=== PATIENT | female | born 1975 | race Hispanic/Latino ===

== ENCOUNTER 2017-05-09 16:00 | Inpatient (IN) | payer OTHER ==
[~2017-05-09] VITALS: Ht 152.4 cm; Wt 76.1 kg
[2017-05-09 16:09] VITALS: BP 146/78; PULSE 116; RESP 21; O2SAT 96
[2017-05-09] MEDS ORDERED: 0.9% Sodium Chloride 1,000 ML IV ONE (16:31)
[2017-05-09] MEDS ORDERED: Ondansetron 2 mg/mL 2 mL Inj IVPUSH PRN ×3 (16:35→22:05)
[2017-05-09] MEDS: HYDROmorphone 0.5 mg/0.5 mL iSecure Syringe IVPUSH PRN ×3 (16:42→21:07)
[2017-05-09 16:43] LABS: BASOPHILS % (AUTO) 0.2 % (0-3); MONOCYTES % (AUTO) 10.3 % (4-12); Mean Corpuscular Hemoglobin 28.2 pg (27.0-35.0); Mean Corpuscular Volume 85.6 fL (81-100); NEUTROPHILS % (AUTO) 69.9 % (40-74); Platelet Count 297 bil/L (150-400)
[2017-05-09 16:51] LABS: APPEARANCE,URINE CLEAR (CLEAR,HAZY); COLOR,URINE YELLOW (YELLOW); OCCULT BLOOD,URINE NEGATIVE (NEGATIVE); UROBILINOGEN,URINE NORMAL (NORMAL)
[2017-05-09 16:52] LABS: Magnesium 1.8 mg/dL (1.6-2.6)
--- NOTE | 2017-05-09 17:46 | ED.REPORT ---
HPI-Abd Pain F 40 and Over Date of Service May 09, 2017 ED Provider: Huseyin López MD The patient is a 42 year old female w/ a hx of HTN and DM II who presents to the ED with constant, sharp, 10/10 RLQ abdominal pain onset yesterday afternoon and increased in severity since 1400 today. The pain is worse when breathing and walking. At 1400 today, she couldn't walk or bend over so she drove to the ED. She denies vomiting, nausea, any urinary symptoms or fever. She has been able to eat and drink normally, she ate a normal breakfast at 1130 without increased pain. She has never had symptoms like this before. Her PCP is at [facility]. Nursing Notes Stated Complaint: RIGHT SIDE PAIN Chief Complaint: Female Abdominal Pain Nursing Notes Reviewed: Yes Allergies: Coded Allergies: No Known Allergies (Unverified , 05/09/17) Scheduled Aspirin (Aspirin) 81 Mg Tablet 81 MG PO DAILY Glipizide (Glipizide) 10 Mg Tablet 10 MG PO DAILY Lisinopril (Lisinopril) 5 Mg Tablet 5 MG PO DAILY Lovastatin (Lovastatin) 10 Mg Tablet 10 MG PO HS Metformin (Glucophage) 1,000 Mg Tablet 1,000 MG PO BID General Time Seen by MD: 16:13 Chief Complaint Abdominal pain Hx Obtained From: Patient Arrived By: Walk-in Sudden in Onset?: Yes Onset Occurred: Yesterday Symptom Duration: Since onset Location: : RLQ Quality: Painful, Sharp Radiation: : Does not radiate Severity: Current: Pain level 10 out of 10 Exacerbated by: Deep breath, Walking Recent Healthcare: No recent doctor visit, No recent hospitalization Similar Sx Previous: No Past Medical History Past Medical History Reports: Diabetes mellitus, Hyperlipidemia, Hypertension Past Surgical History Reports: (2x) Smoking History Unknown if Ever Smoker Social History Other Social History: Local resident Ambulatory Status Independent Review of Systems Constitutional: Denies: Fever GI: Reports: Abdominal pain, Denies: Nausea, Vomiting Female: Denies: Dysuria, Hematuria, Incontinence, Urinary frequency, Urination decreased Complete sys rev & neg: except as marked. Physical Exam Vital Signs Vital Signs (First) Date Time Temp Pulse Resp B/P Pulse Ox O2 Delivery O2 Flow Rate FiO2 05/09/17 16:09 36.6 116 21 146/78 96 Room Air Initial VS: Reviewed General/Constitutional: Awake, Alert, Cooperative Respiratory / Chest: Atraumatic, Breath sounds NL, Breath sounds = bilat, No respiratory distress Cardiovascular: Heart rate NL, Regular rhythm, Heart sounds NL, No gallop, No murmurs, No rubs Abdomen: BS normoactive Tenderness/Guarding/Rebound: Positive: Tender RUQ... Back: Atraumatic, Inspection NL, Full range of motion Head / Eyes: Atraumatic, Normocephalic Skin: No rash, Warm, Dry Neurologic: Oriented X3, Speech NL, No motor deficits Interpretation & Diagnostics Interpretation & Diagnostics: ABDOMINAL US IMPRESSION: 1. Cholelithiasis with gallstones in the gallbladder neck. There is equivocal gallbladder wall thickening. No pericholecystic fluid collection or sonographic Mccall sign. Recommend clinical correlation for early acute cholecystitis. 2. Diffusely increased hepatic echotexture. This finding is most likely secondary to hepatic fatty infiltration although other hepatocellular disease may have a similar appearance. Recommend clinical correlation. Dictated by: Lois David M.D. on 05/09/2017 at 17:57 Approved by: Lois David M.D. on 05/09/2017 at 18:01 Lab Results Interpretation Result Diagram: 05/09/17 1615 05/09/17 1615 Test 05/09/17 16:15 05/09/17 16:40 White Blood Count 12.2th/mm3 (3.8-10.1) Red Blood Count 4.39mil/mm3 (3.90-5.20) Hemoglobin 12.4g/dL (12.0-15.6) Hematocrit 37.6% (35.0-46.0) Mean Corpuscular Volume 85.6fL (81-100) Mean Corpuscular Hemoglobin 28.2pg (27.0-35.0) Mean Corpuscular Hemoglobin Concent 33.0% (32.0-37.0) Red Cell Distribution Width 13.2% (12.3-15.4) Platelet Count 297bil/L (150-400) Neutrophils (%) (Auto) 69.9% (40-74) Lymphocytes (%) (Auto) 18.4% (14-46) Monocytes (%) (Auto) 10.3% (4-12) Eosinophils (%) (Auto) 1.0% (0-5) Basophils (%) (Auto) 0.2% (0-3) Hold Purple Top Tube Received (Received) Hold Blue Top Tube Received (Received) Sodium Level 134mEq/L (134-144) Potassium Level 3.7mEq/L (3.5-5.2) Chloride Level 99mEq/L (97-108) Carbon Dioxide Level 22mmol/L (18-29) Blood Urea Nitrogen 8mg/dL (6-24) Creatinine 0.30mg/dL (0.57-1.00) Estimat Glomerular Filtration Rate 351mL/min (>59) Glucose Level 302mg/dL (60-99) Calcium Level 8.8mg/dL (8.5-10.1) Magnesium Level 1.8mg/dL (1.6-2.6) Total Bilirubin 0.3mg/dL (0.0-1.2) Aspartate Amino Transf (AST/SGOT) 25U/L (0-50) Alanine Aminotransferase (ALT/SGPT) 33U/L (0-32) Alkaline Phosphatase 58U/L (25-150) Total Protein 7.6g/dL (6.4-8.4) Albumin 3.8g/dL (3.4-5.0) Lipase 58U/L (13-60) Hold [place] Top Tube Received (Received) Hold Gonzalez Top Tube Received (Received) Urine Color Yellow (YELLOW) Urine Appearance Clear (CLEAR,HAZY) Urine pH 7.0 (5.0-8.0) Urine Specific [place] 1.010 (1.003-1.035) Urine Protein Negativemg/dL (NEG,TRACE) Urine Glucose (UA) >1000mg/dL (NEGATIVE) Urine Ketones Tracemg/dL (NEGATIVE) Urine Occult Blood Negative (NEGATIVE) Urine Nitrite Negative (NEGATIVE) Urine Bilirubin Negative (NEGATIVE) Urine Urobilinogen Normalmg/dL (NORMAL) Urine Leukocyte Esterase Negative (NEGATIVE) Urine RBC 0-2/hpf (0-2) Urine WBC 0-5/hpf (0-5) Urine Epithelial Cells Many/hpf (NONE-MOD) Urine Crystals None seen (NONE SEEN) Urine Bacteria Many/hpf (NONE-FEW) Urine Hyaline Casts None/lpf (NONE) Urine Granular Casts None seen (NONE SEEN) Urine Waxy Casts None seen (NONE SEEN) Urine Red Blood Cell Casts None seen (NONE SEEN) Urine White Blood Cell Casts None seen (NONE SEEN) Urine Mucus None seen (None Seen) Urine Trichomonas None seen (NONE SEEN) Urine Yeast None (NONE SEEN) Urinalysis Comment None Urine Culture Reflexed Indicated Lab Results Interpretation: up preg negaitve, UA contaminant Re-Eval/Medical Decision Med Decision/Clinical Course 42-year-old female with an impacted gallstone. She is a type II diabetic presently her sugar is uncontrolled. Patient is vague about other home medications. She will be admitted to the hospitalist service with surgery consulting. Given a liter of saline, Dilaudid and Zofran in the emergency department is feeling better. Re-Evaluation/Progress #1: Time of Eval: 18:17 Re-Evaluation/Progress Note: Pt rechecked. Medication has helped slightly but she is still in pain. Informed pt of need for admission. Plan to consult with surgeon. Pt understands and agrees with plan. All question addressed. Re-Evaluation/Progress #2: Time of Eval: 18:37 Re-Evaluation/Progress Note: Dr. Olivas visits the pt in the ED. Consultation #1: Referral / Consult Name: Juana Olivas MD Consulted With: Surgeon Call Returned at: 18:26 Stem Shaper: Will see patient, Agrees with eval, Agrees with plan Note: Case discussed. Dr. Olivas will come down to see the patient. Consultation #2: Referral / Consult Name: Abraham Bennett MD Consulted With: Hospitalist Note: Will admit to hospitalist for control of glucose prior to OR hopefully tomorrow. Counseled Regarding: Diagnosis, Lab results, Need for admission Discharge & Departure Primary Impression: Gallstone (impacted) Disposition: ADMITTED TO HOSPITAL Discharge Condition All VS Reviewed: Yes Condition: Stable Patient Instructions: Acute Abdominal Pain (ED) Referrals: [facility] [place] Attestation Portion of this note were transcribed by Jacinta Camarillo. I, Dr. López, personally performed the history, physical exam, and medical decision-making: I reviewed and confirmed the accuracy for the information in the transcribed note. Signed by: tone Segura, 05/09/17 1800 copies to: [facility] Huseyin López MD May 09, 2017 17:46 Jacinta Camarillo May 09, 2017 17:52
--- NOTE | 2017-05-09 18:03 | DRSVH ---
PROCEDURE: US ABDOMEN ([id number]) INDICATIONS: Right upper quadrant abdominal pain. TECHNIQUE: Real-time scanning was performed of the abdominal and retroperitoneal organs, with image documentatio n. COMPARISON: None. FINDINGS: Liver: Liver is normal in size and diffusely increased hepatic echotexture. Gallbladder: There are gallstone in the gallbladder neck. The gallbladder wall measures 3.1 mm in thi ckness. No pericholecystic fluid or sonographic Mccall's sign. Biliary ducts: Intrahepatic bile ducts are non-dilated. Extrahepatic bile duct caliber measures 6.6 mm. Normal is 6-7 mm or less in diameter, or 10 mm or less post-cholecystectomy. Pancreas: Visualized portions of the pancreas are sonographically normal. Spleen: Spleen is normal in size and homogeneous in echotexture. Kidneys: Kidneys are normal in size and echotexture. Right kidney measures 11.7 cm long; left kidne y measures 13.2 cm long. No hydronephrosis or nephrolithiasis. No solid masses. Aorta: Visualized aorta is normal in caliber at less than 3 cm. Iliacs: Proximal common iliac arteries are normal in caliber at less than 2.5 cm. IVC: Intrahepatic inferior vena cava is patent. Miscellaneous: No free abdominal fluid. IMPRESSION: 1. Cholelithiasis with gallstones in the gallbladder neck. There is equivocal gallbladder wall thicke maxine. No pericholecystic fluid collection or sonographic Mccall sign. Recommend clinical correlation for early acute cholecystitis. 2. Diffusely increased hepatic echotexture. This finding is most likely secondary to hepatic fatty i nfiltration although other hepatocellular disease may have a similar appearance. Recommend clinical c orrelation. Dictated by: Lois David M.D. on 05/09/2017 at 17:57 Approved by: Lois David M.D. on 05/09/2017 at 18:01
[2017-05-09 18:29] VITALS: BP 121/78; PULSE 105; RESP 20; O2SAT 96
[2017-05-09] MEDS ORDERED: LOVA10TA PO (19:22)
[2017-05-09] MEDS ORDERED: METF1000 PO (19:22)
[2017-05-09] MEDS ORDERED: GLIP10TA10 PO (19:22)
[2017-05-09] MEDS ORDERED: LISI-571 PO (19:22)
[2017-05-09] MEDS ORDERED: ASPI-973 PO (19:22)
[2017-05-09 19:52] VITALS: BP 121/78; PULSE 105; RESP 20; O2SAT 96
[2017-05-09] MEDS ORDERED: 0.9% Sodium Chloride 1,000 ML IV SCH (19:56)
[2017-05-09] MEDS ORDERED: Alum-Mag Hydrox-Simeth 30 mL Suspension PO PRN ×2 (20:00→22:05)
[2017-05-09 20:05] VITALS: BP 117/70; PULSE 100; RESP 24; O2SAT 99
[2017-05-09] MEDS ORDERED: Piperacillin-Tazo 3.375 Gm Inj 3.375 GM in Dextrose 5% Minibag Plus 50 ML IV ONE (20:15)
--- NOTE | 2017-05-09 20:27 | CONS ---
[address] [address] CONSULTATION REPORT PATIENT: ERIC WINTERS : 1975 MR#: [id number] ADMIT: 05/09/2017 JOB ID: [id number] DATE OF SERVICE: 05/09/2017 CHIEF COMPLAINT: Abdominal pain. This consultation is requested by Dr. Huseyin López of the Emergency Department. HISTORY OF PRESENT ILLNESS: This is a 42-year-old woman who experienced abdominal pain in the right upper quadrant beginning yesterday. It worsened until 2 p.m. today, at which point she felt she could not walk or bend over. She then presented to the emergency department. She denies vomiting, nausea, and fever. She does not have a history of postprandial abdominal pain. She is a diabetic and her blood sugars were in the 300s. An abdominal ultrasound was performed revealing cholelithiasis with gallstones in the gallbladder neck, a gallbladder wall thickness of 3.1 mm, and no pericholecystic fluid or sonographic Mccall's sign. Intrahepatic bile ducts were nondilated. Extrahepatic bile duct caliber 6.6 mm. Comprehensive metabolic panel was normal, with the exception of glucose of 302 and ALT of 33. PAST MEDICAL HISTORY: Hypertension, type 2 diabetes, hyperlipidemia. History of cardiac catheterization, which was essentially normal, in 2009. PAST SURGICAL HISTORY: C-sections. MEDICATIONS: She is currently taking aspirin. Her med list as an outpatient under the name Christel Rg, also includes metformin, lisinopril, and lovastatin. She reports that she has forgotten to take her other medications. ALLERGIES: No known drug allergies. SOCIAL HISTORY: She does not smoke or drink alcohol. She lives with her son. She works at [employer]. Her daughter and grandbaby are here today. FAMILY HISTORY: Her daughter had a cholecystectomy. REVIEW OF SYSTEMS: Eleven-point review of systems is positive for abdominal pain and is otherwise negative. PHYSICAL EXAMINATION: Temperature 36.6, heart rate 105, respiratory rate of 20, with blood pressure 121/78, saturation 96% on room air. General: Awake and alert, no acute distress. Head: Normocephalic. Neck: Supple. Cardiac: Regular rate and rhythm. No murmurs, rubs, or gallops. Respiratory: Clear to auscultation bilaterally. Abdomen: Soft, tender in the right upper quadrant, nontender in the remaining quadrants. Extremities: No edema. Psychiatric: Normal cognition and judgment. Neurologic: No gross deficits. LABORATORY: White blood cell count is 12.2, hematocrit 37.6, platelets 297. Comprehensive metabolic panel is within normal limits, with the exception of glucose of 302 and ALT of 33. IMAGING: Abdominal ultrasound reveals cholelithiasis with equivocal gallbladder wall thickening as noted above in the HPI. ASSESSMENT: A 42-year-old woman with cholecystitis. I recommend laparoscopic cholecystectomy. She also has a blood sugar in the 300s and has forgotten to take her outpatient medications for hypertension and diabetes. She will need a good inpatient and outpatient management plan for her diabetes now and at discharge. I have scheduled laparoscopic cholecystectomy for the morning. She should remain on antibiotics until that time. She may be n.p.o. at midnight. 45 minutes was spent on this patient's care today, greater than 50% in counseling and/or coordination of care. TEODORO
[2017-05-09 20:41] VITALS: BP 107/70; PULSE 96; RESP 16; O2SAT 97
--- NOTE | 2017-05-09 21:37 | NUR ---
ADMIT: Pt. arrived to [facility] from the ED via stretcher, awake, alert and oriented x3. Reports pain on RUQ rated at 10/10. Started IV NS at 100 ml/hr upon arrival to [facility], also gave 0.5 mg of IV Dilaudid for pain control rated at 10/10. Now she states it hurts mainly when she moves otherwise she feels ok. First dose of IV Zosyn started at 100 ml/hr. Denies n/v. Dr. Herrera came in to see pt. tonlani. She is resting in bed feeling more comfortable at this time. NPO for possible OR tomorrow. On going care.
[2017-05-09] MEDS: 0.9% Sodium Chloride 1,000 ML IV SCH (22:01)
[2017-05-09] MEDS ORDERED: Polyethylene Glycol (PEG) 17 Gm Powder PO PRN (22:05)
[2017-05-09] MEDS ORDERED: Glucose 40% Oral Gel 15 Gm Tube PO PRN (22:05)
--- NOTE | 2017-05-09 23:57 | PCM.HPMED ---
Subjective Date of Service May 09, 2017 Primary Provider: Admitting Physician: Abraham Bennett MD Primary Care Physician: Nopcp Attending Physician: Abraham Bennett MD Chief Complaint: RUQ abd pain History of Present Illness: Patient is a 42 year old female w/ a hx of HTN and DM II who presented with constant, sharp, severe RUQ abdominal pain onset yesterday afternoon and increased in severity to 10/10 since 1400 today. The pain is worse when breathing and walking. At 1400 today, she couldn't walk or bend over so she drove to the ED. She denies vomiting, nausea, diarrhea, dysuria, fevers, chills. She states she has been able to eat and drink normally, and she was able to eat a normal breakfast at 11:30 without increased pain. She has never had symptoms like this before. In the ED, HR was 116, improved to 96 with pain control. BP was 146/78, improved to 107/70. WBC was 12.2. CMP was normal, with the exception of glucose of 302 and ALT of 33. An abdominal ultrasound was performed revealing cholelithiasis with gallstones in the gallbladder neck, a gallbladder wall thickness of 3.1 mm, and no pericholecystic fluid or sonographic Mccall's sign. Intrahepatic bile ducts were nondilated. Her PCP is at [facility]. Review of Systems: Comprehensive review of systems conducted and was negative except for the pertinent positives listed above. Allergies Coded Allergies: No Known Allergies (Unverified , 05/09/17) Home Medications Aspirin 81 mg daily Glipizide 10 mg daily Lisinopril 5 mg daily Lovastatin 10 mg qhs Metformin 1000 mg BID PMH Hypertension Hyperlipidemia Type 2 diabetes Surgical History History of cardiac catheterization, which was essentially normal, in 2009. C-sections x2 Family History Mother with type 2 diabetes Sister with heart murmur No FHx of NC or stroke Social History Hx Alcohol Use: No Hx Substance Use: No Smoking Status: Never Smoker Exam Vital Signs Vital Sign - Last Date Time Temp Pulse Resp B/P Pulse Ox O2 Delivery O2 Flow Rate FiO2 05/09/17 20:41 36.6 96 16 107/70 97 Room Air Exam General: Alert, Oriented X3, Cooperative, No acute distress Head: Normocephalic, atraumatic. External ears normal. Eyes: PERRLA, EOMI. Anicteric sclerae. Mouth: Mouth normal, Mucous membranes moist/pink Neck: Neck supple with full range of motion. Chest& Lungs: Clear to auscultation bilaterally with no crackles, wheezes, or rhonchi. Cardiovascular: Regular rate/rhythm, Normal S1, Normal S2, No murmurs/rubs/ gallops Abdomen: Tenderness to palpation of RUQ, Non-distended, No masses, Normoactive bowel tones, Soft Musculoskeletal: Normal range of motion Extremities: No cyanosis/clubbing/edema bilaterally Neurological: Grossly neurologically intact. Normal speech Lab and Diagnostics Result Diagram: 05/09/17 1615 05/09/17 1615 Assessment & Plan Patient is a 42 year old female w/ a hx of HTN and DM II who presented with constant, sharp, severe RUQ abdominal pain onset yesterday afternoon Acute cholecystitis. - Pt presents with RUQ pain, abdominal ultrasound was performed revealing cholelithiasis with gallstones in the gallbladder neck, a gallbladder wall thickness of 3.[address] Olivas of Surgery was consulted, pt to have cholecystectomy tomorrow. - NPO after midnight - Dr. Olivas of Surgery consulted. We appreciate her expertise. - Ibuprofen PRN pain Type 2 diabetes, uncontrolled - Glucose 302 on admission. Pt reports compliance with home glipizide and metformin. Pt may require insulin on discharge depending on BG control and A1c. - A1c ordered - Hold glipizide and metformin as pt is NPO for surgery. Restart meds after surgery and pt begins eating. - Continue regular BG checks - Lantus 7 U qhs. - Humalog medium dose correctional scale. No nutritional insulin while pt is NPO. Mildly elevated LFTs - ALT 33. Likely secondary to cholecystitis. - Monitor CMP Hypertension - Well controlled on lisinopril - Continue home lisinopril. Hyperlipidemia - Continue home lovastatin - Bowel regimen as needed - Antiemetic as needed Patient is admitted under observation status with expected length of stay less than 2 midnights due to severity of presenting symptoms, risk of adverse event, and complexity of treatment plan. Karri Herrera 28, 2017 23:57
[2017-05-10] VITALS (13 sets, daily range): BP systolic 102–138; BP diastolic 57–74; PULSE 66–91; RESP 14–18; O2SAT 92–98
[2017-05-10] MEDS ORDERED: Piperacillin-Tazo 3.375 Gm Inj 3.375 GM in Dextrose 5% Minibag Plus 50 ML IV SCH (00:30)
[2017-05-10] MEDS: Insulin GLARgine 100 Unit/mL Syringe SUBQ SCH ×2 (00:32→21:17)
[2017-05-10] MEDS: Piperacillin-Tazo 3.375 Gm Inj 3.375 GM in Dextrose 5% Minibag Plus 50 ML IV SCH ×3 (04:55→21:05)
[2017-05-10 06:18] LABS: BASOPHILS % (AUTO) 0.2 % (0-3); EOSINOPHILS % (AUTO) 1.4 % (0-5); MONOCYTES % (AUTO) 9.1 % (4-12); Mean Corpuscular Hemoglobin 28.6 pg (27.0-35.0); Mean Corpuscular Volume 87.2 fL (81-100); NEUTROPHILS % (AUTO) 64.1 % (40-74); Platelet Count 255 bil/L (150-400)
[2017-05-10] MEDS ORDERED: Lactated Ringer's 500 ML IV PRN (07:32)
[2017-05-10] MEDS ORDERED: Lactated Ringer's 1,000 ML IV SCH (07:32)
[2017-05-10] MEDS ORDERED: Labetalol 5 mg/mL 4 mL Inj IV PRN (07:35)
[2017-05-10] MEDS ORDERED: MetoCLOpramide 5 mg/mL 2 mL Inj IVPUSH PRN (07:35)
[2017-05-10] MEDS ORDERED: Dexamethasone 4 mg/mL Inj IVPUSH PRN (07:35)
[2017-05-10] MEDS ORDERED: Phenylephrine 10,000 mCg/mL Inj IVPUSH PRN (07:35)
[2017-05-10] MEDS ORDERED: Ondansetron 2 mg/mL 2 mL Inj IVPUSH PRN (07:35)
[2017-05-10] MEDS ORDERED: fentaNYL-PF 50 mCg/mL 2 mL Inj IVPUSH PRN (07:35)
[2017-05-10] MEDS ORDERED: hydrALAZINE 20 mg/mL Inj IVPUSH PRN (07:35)
[2017-05-10] MEDS ORDERED: EPHEDrine Sulfate 50 mg/mL Inj IVPUSH PRN (07:35)
[2017-05-10] MEDS ORDERED: HYDROmorphone 1 mg/mL Inj IVPUSH PRN (07:35)
[2017-05-10] MEDS: 0.9% Sodium Chloride 1,000 ML IV SCH (08:06)
[2017-05-10] MEDS: Insulin LISPRO 300 Unit/3 mL Inj SUBQ SCH ×5 (08:48→21:13)
--- NOTE | 2017-05-10 09:21 | PCM.HPANE ---
Patient Data Date of Service: May 10, 2017 Surgeon Admitting Provider:Tomás Miller MD Attending Provider:Tomás Miller MD Primary Care Physician:Bo Other Provider:Lindsay Romero Anesthesia Reason for Visit Acute Cholocystitis Ht/WT & BMI Height (Feet): 5 Height (Inches): 0.00 Weight (Kilograms): 76.100 Body Mass Index 32.94 Allergies Coded Allergies: No Known Allergies (Unverified , 05/09/17) Past Anesthesia History Anesthesia History: Denies:: Anesthesia Reactions Diabetes History Hx Diabetes?: Yes (on po agents) Current Bedside Blood Glucose: 242 MRSA MRSA: No Medications Reported Medications Metformin (Glucophage)1,000 Mg Tablet1,000 Mg PO BID 05/09/17 Aspirin 81 Mg [id number] Mg PO DAILY 05/09/17 Lisinopril 5 Mg Tablet5 Mg PO DAILY 05/09/17 Lovastatin 10 Mg [id number] Mg PO HS 05/09/17 Glipizide 10 Mg [id number] Mg PO DAILY 05/09/17 History History of ENT Problems?: No HEENT History: Denies:: Abnormal Airway Cataracts Difficult Intubation Dysphagia Glaucoma Hearing Problem Sinus Problem TMJ Denture Type: None Teeth Condition: Within Normal Limits Hx of Heart Problems?: Yes Cardiovascular History: Positive for:: Congestive Heart Failure Hypertension Other Cardiac History: HLD Hx of Respiratory Problem?: No Respiratory History: Denies:: Tuberculosis Hx Neurologic Problems?: No Hx of GI Problems?: Yes Other GI Pertinent History: current gallstone (impacted) Hx of Problems?: No Female Hx: Denies:: Currently Endometriosis Pelvic Inflammatory Problems with Breasts? Hx Musculoskeletal Problems?: No Hx of Psycho/Social Problems?: No Hx Surgeries?: Yes () Hx Any Other Health Problems?: Yes Other History: Positive for:: Hospitalization Denies:: Cancer Thyroid Disease History Blood Transfusions: Positive for:: Accept Blood Products? Denies:: Blood Transfusions Hx Diabetes: Yes (on po agents)Bedside Blood Glucose: 242 Hx Alcohol Use: NoHx Substance Use: No Smoking Status: Never Smoker Stop/Bang Treated for Sleep Apnea?: No Do You Have a CPAP Machine?: No S-Snoring: Do You Snore Loudly: No T-Tired: feel tired, fatigued: No O-Obsered: Observed not breath: No P-Blood Pressure: treated: Yes B- Body Mass Index > 35 kg/m2: No A- Age over 50: No N- Neck Large Circumference: No G- Gender Male: No TIGRE Total Score: 1 TIGRE Risk Assessment: Low Risk, <3 Yes Risk Assessment Category Category 1A: Patient has history of documented sleep apnea, and HAS NOT received any narcotic, sedative or anesthesia administration during this stay. Category 1B: Patient has history of documented sleep apnea, and HAS received any narcotic , sedative or anesthesia administration during this stay Category 2: Patient has SUSPECTED Obstructive Sleep Apnea, and HAS received any narcotic , sedative or anesthesia administration during this stay. Category 3: Patient has SUSPECTED Obstructive Sleep Apnea and HAS NOT received narcotic, sedative or anesthesia administration during this stay. Category 4: Outpatient in Procedural Areas with known sleep apnea or who screen positive for High Risk via the STOP/BANG questionnaire. Exam Exam Vital Signs Vital Signs Date Time Temp Pulse Resp B/P Pulse Ox O2 Delivery O2 Flow Rate FiO2 05/10/17 08:33 36.8 84 18 115/74 96 Room Air 05/10/17 04:29 36.7 82 16 106/61 95 Room Air General Appearance: Alert, Oriented X3, Cooperative, No Acute Distress HEENT/AIRWAY: MP 2 Lungs: Clear to Auscultation, Normal Air Movement Heart: Exam Unremarkable, Regular Rate/Rhythm, No Murmurs/Rubs/Gallops Meds/Labs/Diagnostics Admission Meds Current Medications Sodium Chloride 1,000 ml @ 0 mls/hr Q0M ONCE IV Last administered on 16:42; Start 05/09/17 at 16:31; Stop 05/09/17 at 16:33; Status DC Sodium Chloride 1,000 ml @ 100 mls/hr Q10H IV Last administered on 05/09/17 21:01; Start 05/09/17 at 19:56; Stop 05/09/17 at 22:08; Status DC Piperacillin Sod/ Tazobactam Sod 3.375 gm/Dextrose/ Water 50 ml @ 100 mls/hr ONCE ONCE IV Last administered on 05/09/17 21:18; Start 05/09/17 at 20:15; Stop 05/09/17 at 20:44; Status DC Sodium Chloride (Normal Saline) 1,000 ml @ 100 mls/hr Q10H IV Last administered on 05/10/17 08:06; Start 05/09/17 at 22:01 Insulin Human Lispro (HumaLOG Insulin Inj) Nutritional Dose to be given pr... [facility] SUBQ Last administered on 05/10/17 08:48; Start 05/10/17 at 08:00 Insulin Glargine 7 unit 7 unit HS SUBQ Last administered on 05/10/17 00:32; Start 05/09/17 at 22:18 Piperacillin Sod/ Tazobactam Sod/ Dextrose/Water (Zosyn 3.375 Gm Inj/D5W Minibag Plus) 50 ml @ 12.5 mls/hr Q8H IV Last administered on 05/10/17 04:55 ; Start 05/10/17 at 05:00 Bedside Blood Glucose: 242 Labs Test 05/09/17 16:15 05/09/17 16:40 05/10/17 05:45 Hold Purple Top Tube Received (Received) Hold Blue Top Tube Received (Received) Hemoglobin A1c 10.6% (4.8-5.6) Magnesium Level 1.8mg/dL (1.6-2.6) Lipase 58U/L (13-60) Hold [place] Top Tube Received (Received) Hold Gonzalez Top Tube Received (Received) Urine Color Yellow (YELLOW) Urine Appearance Clear (CLEAR,HAZY) Urine pH 7.0 (5.0-8.0) Urine Specific Morgan 1.010 (1.003-1.035) Urine Protein Negativemg/dL (NEG,TRACE) Urine Glucose (UA) >1000mg/dL (NEGATIVE) Urine Ketones Tracemg/dL (NEGATIVE) Urine Occult Blood Negative (NEGATIVE) Urine Nitrite Negative (NEGATIVE) Urine Bilirubin Negative (NEGATIVE) Urine Urobilinogen Normalmg/dL (NORMAL) Urine Leukocyte Esterase Negative (NEGATIVE) Urine RBC 0-2/hpf (0-2) Urine WBC 0-5/hpf (0-5) Urine Epithelial Cells Many/hpf (NONE-MOD) Urine Crystals None seen (NONE SEEN) Urine Bacteria Many/hpf (NONE-FEW) Urine Hyaline Casts None/lpf (NONE) Urine Granular Casts None seen (NONE SEEN) Urine Waxy Casts None seen (NONE SEEN) Urine Red Blood Cell Casts None seen (NONE SEEN) Urine White Blood Cell Casts None seen (NONE SEEN) Urine Mucus None seen (None Seen) Urine Trichomonas None seen (NONE SEEN) Urine Yeast None (NONE SEEN) Urinalysis Comment None Urine Culture Reflexed Indicated White Blood Count 6.2th/mm3 (3.8-10.1) Red Blood Count 3.67mil/mm3 (3.90-5.20) Hemoglobin 10.5g/dL (12.0-15.6) Hematocrit 32.0% (35.0-46.0) Mean Corpuscular Volume 87.2fL (81-100) Mean Corpuscular Hemoglobin 28.6pg (27.0-35.0) Mean Corpuscular Hemoglobin Concent 32.8% (32.0-37.0) Red Cell Distribution Width 13.2% (12.3-15.4) Platelet Count 255bil/L (150-400) Neutrophils (%) (Auto) 64.1% (40-74) Lymphocytes (%) (Auto) 25.0% (14-46) Monocytes (%) (Auto) 9.1% (4-12) Eosinophils (%) (Auto) 1.4% (0-5) Basophils (%) (Auto) 0.2% (0-3) Sodium Level 138mEq/L (134-144) Potassium Level 3.4mEq/L (3.5-5.2) Chloride Level 104mEq/L (97-108) Carbon Dioxide Level 24mmol/L (18-29) Blood Urea Nitrogen 7mg/dL (6-24) Creatinine < 0.30mg/dL (0.57-1.00) Estimat Glomerular Filtration Rate mL/min (>59) Glucose Level 242mg/dL (60-99) Calcium Level 7.9mg/dL (8.5-10.1) Total Bilirubin 0.3mg/dL (0.0-1.2) Aspartate Amino Transf (AST/SGOT) 19U/L (0-50) Alanine Aminotransferase (ALT/SGPT) 25U/L (0-32) Alkaline Phosphatase 45U/L (25-150) Total Protein 5.6g/dL (6.4-8.4) Albumin 3.1g/dL (3.4-5.0) Plan Impression Patient chart reviewed, patient interviewed and anesthestic plan with risks, benefits, and alternatives discussed, and informed consent obtained. NPO per Anesth. Guidelines: Yes ASA Physical Status: ASA2 Mod Systemic Disease Anesthetic Plan: GA Bene/Risks/Altern/Consents: Yes HP Complete Prior to Induction: Yes Jero Kitchen MD May 10, 2017 09:20
--- NOTE | 2017-05-10 09:34 | PCM.PNSURG ---
Subjective Visit Information: Reason for Visit Acute Cholocystitis Surgery/Surgery Date Post-Op Day # Date of Admission: May 09, 2017 at 19:25 Hospital Day # Subjective: Stable overnight. Leukocytosis resolved. Objective Vital Sign- Last 8 Hours Date Time Temp Pulse Resp B/P Pulse Ox O2 Delivery O2 Flow Rate FiO2 05/10/17 08:33 36.8 84 18 115/74 96 Room Air 05/10/17 04:29 36.7 82 16 106/61 95 Room Air Intake and Output- Last 8 Hour 05/10/17 Cumulative From/Thru 07:00 05/09/17 16:09 - 05/10/17 06:15 Intake Total 784 ml 1784 ml Balance 784 ml 1784 ml Intake Oral 0 ml 0 ml IV Total 784 ml 1784 ml # Voids 1 2 # Bowel Movements 0 0 Abdomen: Soft, Appropriately tender, Other (tender RUQ) Result Diagram: 05/10/17 0545 05/10/17 0545 Assessment & Plan Impression Cholecystitis, uncontrolled diabetes Problems: Plan 1. Laparoscopic cholecystectomy today. 2. She will need a plan in place for inpatient and outpatient diabetes management given blood sugars >180 and elevated HbA1c, and the fact that she did not know what medications she was supposed to be on for diabetes at the time of presentation. Juana Olivas MD May 10, 2017 09:34
[2017-05-10] MEDS ORDERED: Lactated Ringer's 1,000 ML IV ONE (09:35)
--- NOTE | 2017-05-10 09:54 | NUR ---
To O.R. Pt taken to O.R. at 0900 hrs. Daughter accompanied pt to surgery.
[2017-05-10] MEDS ORDERED: Bupivacaine 0.5%/EPI 50 mL Inj INJ ONE (09:56)
--- NOTE | 2017-05-10 11:05 | PCM.SURGOP ---
Surgical Operative Report Date of Service: May 10, 2017 Pre Operative Diagnosis Acute cholecystitis Post Operative Diagnosis Acute on chronic cholecystitis Procedure: Laparoscopic cholecystectomy Surgeon and Workforce Planner: Surgeon: Juana Olivas M.D. Assistants: Vladimir Platt PA-C a senior administrative assistant was necessary for dissection and retraction. Indication for Procedure This is a 42-year-old woman who presented to the emergency department with right upper quadrant pain, mild leukocytosis, and an ultrasound showing cholelithiasis with borderline thickening of the gallbladder wall. She was diagnosed with cholecystitis and laparoscopic cholecystectomy was scheduled on semi-urgent basis. Findings: Pericholecystic edema consistent with acute cholecystitis. She also had thick, fibrous adhesions of the gallbladder, which was intrahepatic, consistent with chronic cholecystitis. There was a single large gallstone within the gallbladder was opened on the back table, approximately 1.5 cm in size, black in color. Procedure Details The patient was brought to the operating room and placed in supine position. General endotracheal anesthesia was smoothly induced. Antibiotics were infused. A warming blanket and SCDs were placed. A foot board was placed. The operative field was prepped and draped in sterile fashion. A pause was performed to confirm the correct patient, procedure, site, and side. A transverse 10 mm incision was made just below the umbilicus. The abdomen was entered under direct vision using a Rosita port. Three additional 5 mm ports were placed in the epigastrium and right upper quadrant. The gallbladder was identified and lifted cephalad. Dissection then proceeded to identify the cystic duct, cystic artery, and to expose the bottom one third of the cystic plate. The cystic artery was traversing immediately along side the cystic duct , and it had to be divided in order to expose the cystic duct. It was clearly entering the gallbladder and no other structures. The cystic duct was then carefully exposed and the lower one third of the cystic plate was dissected such that the cystic duct was the only structure seen entering the gallbladder. The cystic duct was then divided twice on the patient's side and once on the gallbladder side and was divided. The gallbladder was then removed from its bed on the liver with electrocautery. Prior to completely removing the gallbladder, a final look was taken at the stump of the cystic artery and cystic duct, and there was no bleeding or bile leak. The gallbladder was then fully removed from the liver and placed in an EndoCatch bag and removed. The three 5 mm ports were removed under direct vision, the 10 mm mid abdominal port was removed, and a [id number] 0 PDS was used to close the fascia. There was no fascial defect at the end of the case. 0.5% Marcaine with epinephrine was infused at all port sites for postoperative analgesia. The skin was closed with subcuticular 4-0 Monocryl. Sterile dressings were placed. The patient was awakened from general anesthesia and taken to the postoperative care unit in good condition. Complications There were no periprocedural complications identified. Surgical Specimen Removed: Yes Specimen sent to Pathology: Yes Surgical Specimen description: Gallbladder and gallstone Anesthetic Plan: GA Grafts, Implants: None Output, Estimated Blood Loss: 5 (ml) Blood Administration during fong: No Juana Olivas MD May 10, 2017 11:05
--- NOTE | 2017-05-10 12:05 | PCM.ANEP1 ---
Post Anesthesia PACU Phase 1 Assessment Date of Service: May 10, 2017 Vital Signs Vital Signs Date Time Temp Pulse Resp B/P Pulse Ox O2 Delivery O2 Flow Rate FiO2 05/10/17 11:46 77 15 113/64 95 Nasal Cannula 4 05/10/17 11:30 73 17 111/63 96 Simple Mask 10 05/10/17 11:25 77 14 110/59 95 Simple Mask 10 05/10/17 11:20 67 15 102/60 92 Simple Mask 10 05/10/17 11:15 37.0 66 17 103/57 93 Simple Mask 10 05/10/17 08:33 36.8 84 18 115/74 96 Room Air 05/10/17 04:29 36.7 82 16 106/61 95 Room Air Anesthetic Administered: GA Level of Alertness: Awake, talking Pain: No (no pain currently) Pain Scale Score: 0 Nausea or Vomiting: No CV Function & Hydration Stable: Yes Airway Device: Oxygen Delivery: Room Air Lungs: Clear to Auscultation, Normal Air Movement PACU Phase 2 Assessment Complications: No Follow up Care: No Patient Instructions Provided: N/A Jero Kitchen MD May 10, 2017 12:05
--- NOTE | 2017-05-10 12:36 | NUR ---
Return to OSC Received report from Wai in PACU. Pt returned to OSC at 1215 hrs. Pt very drowsy and arousable. Oriented x 3. Pt became nauseated and vomited bile immediately after moving onto the bed from the O.R. cart. This subsided within 5 minutes, and pt declined anti-emetic medication. Pt also had no c/o pain; declined pain medication. Four lap sites noted; clean, dry, intact. PIV patent and asymptomatic. IV fluids continued.
[2017-05-10] MEDS ORDERED: 0.9% Sodium Chloride 250 ML ONE (13:45)
[2017-05-10] MEDS ORDERED: EPHEDrine/NS 5 mg/mL 5 mL Syringe ONE (19:26)
[2017-05-10] MEDS ORDERED: Ondansetron 2 mg/mL 2 mL Inj ONE (19:26)
[2017-05-10] MEDS ORDERED: Glycopyrrolate 0.2 MG/ML 1mL Inj ONE (19:26)
[2017-05-10] MEDS ORDERED: Rocuronium 10 mg/mL 5 mL Inj ONE (19:26)
[2017-05-10] MEDS ORDERED: Neostigmine 1 mg/mL 10 mL Inj ONE (19:26)
[2017-05-10] MEDS ORDERED: fentaNYL-PF 50 mCg/mL 2 mL Inj ONE (19:26)
[2017-05-10] MEDS ORDERED: Lidocaine PF 1% 30 mL Inj ONE (19:26)
[2017-05-10] MEDS ORDERED: Propofol 10,000 mCg/mL 20 mL Inj ONE (19:26)
[2017-05-10] MEDS ORDERED: Ketamine 10 mg/mL 20 mL Inj ONE (19:26)
--- NOTE | 2017-05-10 23:16 | PCM.PNMED ---
Subjective Date of Service May 10, 2017 Subjective Patient was seen postoperatively and was very somnolent. Patient appeared very comfortable lying supine in bed Exam Vital Signs Vital Sign - Last Date Time Temp Pulse Resp B/P Pulse Ox O2 Delivery O2 Flow Rate FiO2 05/10/17 19:31 37.0 91 16 138/70 93 Room Air 05/10/17 17:07 3.00 Intake and Output 05/09/17 05/09/17 05/10/17 Cumulative From/Thru 15:00 23:00 07:00 05/09/17 16:09 - 05/10/17 06:15 Intake Total 1000 ml 784 ml 1784 ml Balance 1000 ml 784 ml 1784 ml Intake Oral 0 ml 0 ml IV Total 1000 ml 784 ml 1784 ml # Voids 1 1 2 # Bowel Movements 0 0 Exam General: Patient was comfortable in no apparent distress lying supine in bed HEENT: Head is atraumatic and normocephalic. Eyes: Pupils are equally round and reactive to light and accommodation. Extraocular muscles are intact. Sclera are white, anicteric. Subconjunctival mucosa is pink. Ears and nose are unremarkable. Oropharynx: There is no mucosal lesions, there is no thrush, there is no pharyngitis. Neck: Is supple, there are no nodes, or masses or tenderness. Chest: Is clear to auscultation and percussion. There are no rales, rhonchi, wheezes or rubs. Heart: Rate, rhythm is regular. There is no murmur, rub or gallop. Abdomen: Bowel sounds are hypoactive. Abdomen is soft, nontender, no organomegaly or masses were appreciated. Dressings over the laparoscopic incisions are clean dry and intact and there is no crepitance there is no cellulitis there is no drainage. Extremities: Are symmetrical and well perfused. There is no edema, there is no cellulitis, no rash. Neurologic: There are no focal neurological deficits. Cranial nerves II through XII are intact. There are no sensory or motor deficits. Patient was seen postoperatively and was very somnolent Psychiatric: Patient shows no sign of agitation. Patient was very somnolent. Genital: Deferred Rectal: Deferred Lab and Diagnostics Result Diagram: 05/10/17 0545 05/10/17 0545 Microbiology Urine culture shows no growth. X-Rays, CTs and MRIs PROCEDURE: US ABDOMEN ([id number]) INDICATIONS: Right upper quadrant abdominal pain. TECHNIQUE: Real-time scanning was performed of the abdominal and retroperitoneal organs, with image documentation. COMPARISON: None. FINDINGS: Liver: Liver is normal in size and diffusely increased hepatic echotexture. Gallbladder: There are gallstone in the gallbladder neck. The gallbladder wall measures 3.1 mm in thickness. No pericholecystic fluid or sonographic Mccall's sign. Biliary ducts: Intrahepatic bile ducts are non-dilated. Extrahepatic bile duct caliber measures 6.6 mm. Normal is 6-7 mm or less in diameter, or 10 mm or less post-cholecystectomy. Pancreas: Visualized portions of the pancreas are sonographically normal. Spleen: Spleen is normal in size and homogeneous in echotexture. Kidneys: Kidneys are normal in size and echotexture. Right kidney measures 11.7 cm long; left kidney measures 13.2 cm long. No hydronephrosis or nephrolithiasis. No solid masses. Aorta: Visualized aorta is normal in caliber at less than 3 cm. Iliacs: Proximal common iliac arteries are normal in caliber at less than 2.5 cm. IVC: Intrahepatic inferior vena cava is patent. Miscellaneous: No free abdominal fluid. IMPRESSION: 1. Cholelithiasis with gallstones in the gallbladder neck. There is equivocal gallbladder wall thickening. No pericholecystic fluid collection or sonographic Mccall sign. Recommend clinical correlation for early acute cholecystitis. 2. Diffusely increased hepatic echotexture. This finding is most likely secondary to hepatic fatty infiltration although other hepatocellular disease may have a similar appearance. Recommend clinical correlation. Dictated by: Lois David M.D. on 05/09/2017 at 17:57 Approved by: Lois David M.D. on 05/09/2017 at 18:01 Assessment & Plan Patient is a 42 year old female w/ a hx of HTN and DM II who presented with constant, sharp, severe RUQ abdominal pain onset yesterday afternoon patient was admitted to the hospitalist service and Gen. surgery was consulted. Acute cholecystitis. - Pt presents with RUQ pain, abdominal ultrasound was performed revealing cholelithiasis with gallstones in the gallbladder neck, a gallbladder wall thickness of 3.1 m. - Dr. Olivas of Surgery was consulted, pt was taken for cholecystectomy today. Patient tolerated the procedure well. Type 2 diabetes, uncontrolled - Glucose 302 on admission. Pt reports compliance with home glipizide and metformin. Pt may require insulin on discharge depending on BG control and A1c. - A1c ordered and was 10.6 - Hold glipizide and metformin as pt is NPO for surgery. Restart meds after surgery and pt begins eating. - Continue regular BG checks and sliding scale insulin coverage - Lantus 7 U qhs. - Humalog medium dose correctional scale. No nutritional insulin while pt is NPO. Mildly elevated LFTs - ALT 33. Likely secondary to cholecystitis. - Monitor CMP Hypertension - Well controlled on lisinopril - Continue home lisinopril. Hyperlipidemia - Continue home lovastatin - Bowel regimen as needed - Antiemetic as needed Disposition: Patient likely to be here another 24-48 hours to get her blood sugar under control prior to discharge. Patient obviously is not controlled or blood sugar well at home prior to this admission with a hemoglobin A1c of 10.6. We will try to educate her and give her a treatment plan that she could easily follow. Pain Evaluation: Adequate Pain Control VTE Mechanical Devices: Intermittant Pneumatic CD Tomás Miller MD May 10, 2017 23:16
[2017-05-11 01:19] VITALS: BP 110/71; PULSE 65; RESP 16; O2SAT 92
[2017-05-11] MEDS: Piperacillin-Tazo 3.375 Gm Inj 3.375 GM in Dextrose 5% Minibag Plus 50 ML IV SCH ×3 (04:23→20:05)
--- NOTE | 2017-05-11 04:46 | NUR ---
Pain/ Blood Sugars Pt. given 10 mg Oxycodone for pain. Pt. fell asleep afterwards. Pt's HS blood sugar 194. Lantus given as ordered, which seemed to be effective. As when BS was re-checked in the 0300 hours per protocol, pt's BS was 129. Will continue to monitor.
[2017-05-11 05:39] VITALS: BP 109/71; PULSE 87; RESP 18; O2SAT 93
[2017-05-11 06:26] LABS: BASOPHILS % (AUTO) 0.1 % (0-3); EOSINOPHILS % (AUTO) 0.5 % (0-5); MONOCYTES % (AUTO) 7.7 % (4-12); Mean Corpuscular Hemoglobin 27.7 pg (27.0-35.0); Mean Corpuscular Volume 87.4 fL (81-100); NEUTROPHILS % (AUTO) 73.5 % (40-74); Platelet Count 252 bil/L (150-400)
[2017-05-11 06:46] LABS: Magnesium 1.8 mg/dL (1.6-2.6)
--- NOTE | 2017-05-11 08:38 | PCM.PNSURG ---
Subjective Visit Information: Reason for Visit Acute Cholocystitis Surgery/Surgery Date LAP CHOLECYSTECTOMY 05/10/17 Post-Op Day # Date of Admission: May 09, 2017 at 19:25 Hospital Day # Subjective: c/o pain near xiphoid with deep inspiration/movement. Vitals normal. Has not walked since surgery. Objective Vital Sign- Last 8 Hours Date Time Temp Pulse Resp B/P Pulse Ox O2 Delivery O2 Flow Rate FiO2 05/11/17 05:39 36.7 87 18 109/71 93 Room Air 05/11/17 01:19 36.8 65 16 110/71 92 Room Air Intake and Output- Last 8 Hour 05/11/17 Cumulative From/Thru 07:00 05/09/17 16:09 - 05/11/17 05:55 Intake Total 115 ml 3825 ml Output Total 9 ml Balance 115 ml 3816 ml Intake Oral 500 ml IV Total 115 ml 3325 ml Output Estimated Blood Loss 9 ml # Voids 5 # Bowel Movements 0 General: Alert, Oriented X3, Cooperative Abdomen: Soft, Appropriately tender, Other (non-distended, incisions minimally tender. ) Result Diagram: 05/11/17 0543 05/11/17 0543 Assessment & Plan Impression 42yof POD lap steven for acute cholecystitis. Problems: Plan Due to complaint of low chest pain with inspiration/movement, which could be incisional in nature but is somewhat higher than my highest incision, I have ordered CXR and EKG to r/o cardiopulmonary cause. Recommend ambulation. Low fat diet. Control of DM as best can be done during this inpt stay; needs f/u as outpt with PCP. Ok to discharge when primary team feels she is ready and pending studies as noted above. I am apron man this weekend and will see her if she is in house Sat/Sun. Juana Olivas MD May 11, 2017 08:38
[2017-05-11] MEDS: Insulin LISPRO 300 Unit/3 mL Inj SUBQ SCH ×4 (09:03→23:22)
[2017-05-11] MEDS: 0.9% NaCl + KCl 20 mEq/L 1,000 ML IV SCH ×2 (10:58→23:17)
[2017-05-11] MEDS: Potassium Chloride 20 mEq SR Tablet PO SCH ×2 (10:58→20:04)
--- NOTE | 2017-05-11 11:43 | DRSVH ---
PROCEDURE: X-RAY CHEST ONE VIEW, PORTABLE ([id number]) INDICATIONS: pleuritic lower chest pain TECHNIQUE: One view of the chest was acquired. COMPARISON: [facility], [place], XR CHEST 1VW (PORTABLE), 05/30/2016, 23:35. [facility] [place], [place], CR, CHEST 2VW, 07/19/2010, 17:40. [facility], CR, XR CHEST 2VW, 04/22/2017, 15:44. FINDINGS: Surgical changes and devices: Cholecystectomy clips.. Lungs and pleura: There is mild pulmonary vascular prominence and Jg B-lines present involving th e lung bases peripherally most notable in the right. No pleural effusion or pneumothorax. Mediastinum: Mediastinal contours appear normal. Heart size is prominent. Bones and chest wall: No suspicious bony lesions. Overlying soft tissues appear unremarkable. IMPRESSION: Mild vascular prominence and Jg B-lines present suggesting developing mild pulmonary edema. Dictated by: Solomon PAKA Interpreted: Juan M Muñoz MD on 05/11/2017 at 11:16 Approved by: Juan M Muñoz M.D. on 05/11/2017 at 11:40
--- NOTE | 2017-05-11 12:15 | NUR ---
Nausea / EKG Pt began c/o acute nausea and diaphoresis. Cool rag placed on head. Zofran given which seemed to help some. Some chest pain per pt but more in upper ABD area along with pain need incisions. EKG results called into hospitalist. Per EKG Abnormal EKG: SR 90s; Nonspecific T Abnormalities; Lateral leads. Care continues
[2017-05-11 15:32] VITALS: BP 106/70; PULSE 85; RESP 20; O2SAT 96
[2017-05-11] MEDS: Insulin GLARgine 100 Unit/mL Syringe SUBQ SCH (20:09)
[2017-05-11 21:35] VITALS: BP 110/75; PULSE 80; RESP 16; O2SAT 96
--- NOTE | 2017-05-12 00:43 | PCM.PNMED ---
Subjective Date of Service May 12, 2017 Subjective Patient is much more awake today and is beginning to eat however not eating much. She is complaining of epigastric pain in the subxiphoid area. She has no other new complaints. She has no nausea, no vomiting, no fever, no chills. Exam Vital Signs Vital Sign - Last Date Time Temp Pulse Resp B/P Pulse Ox O2 Delivery O2 Flow Rate FiO2 05/11/17 21:35 36.7 80 16 110/75 96 Room Air 05/10/17 17:07 3.00 Intake and Output 05/11/17 05/11/17 05/12/17 Cumulative From/Thru 15:00 23:00 07:00 05/09/17 16:09 - 05/11/17 19:09 Intake Total 1777 ml 5602 ml Output Total 900 ml 909 ml Balance 877 ml 4693 ml Intake Oral 1000 ml 1500 ml IV Total 777 ml 4102 ml Output Urine Total 900 ml 900 ml Estimated Blood Loss 9 ml # Voids 2 7 # Bowel Movements 0 Exam General: Patient is lying supine in bed and appears uncomfortable due to upper epigastric pain. HEENT: Head is atraumatic and normocephalic. Eyes: Pupils are equally round and reactive to light and accommodation. Extraocular muscles are intact. Sclera are white, anicteric. Subconjunctival mucosa is pink. Ears and nose are unremarkable. Oropharynx: There is no mucosal lesions, there is no thrush, there is no pharyngitis. Neck: Is supple, there are no nodes, or masses or tenderness. Chest: Is clear to auscultation and percussion. There are no rales, rhonchi, wheezes or rubs. Heart: Rate, rhythm is regular. There is no murmur, rub or gallop. Abdomen: Bowel sounds are hypoactive. Abdomen is soft, nontender, no organomegaly or masses were appreciated. There is no rebound tenderness and there is no guarding. Dressings over the laparoscopic incisions are clean dry and intact and there is no crepitance there is no cellulitis there is no drainage. Extremities: Are symmetrical and well perfused. There is no edema, there is no cellulitis, no rash. Neurologic: There are no focal neurological deficits. Cranial nerves II through XII are intact. There are no sensory or motor deficits. Patient was seen postoperatively and was very somnolent Psychiatric: Patient shows no sign of agitation. Patient was very somnolent. Genital: Deferred Rectal: Deferred Lab and Diagnostics Result Diagram: 05/11/1754205/11/17542 Microbiology Urine culture shows no growth. X-Rays, CTs and MRIs PROCEDURE: US ABDOMEN ([id number]) INDICATIONS: Right upper quadrant abdominal pain. TECHNIQUE: Real-time scanning was performed of the abdominal and retroperitoneal organs, with image documentation. COMPARISON: None. FINDINGS: Liver: Liver is normal in size and diffusely increased hepatic echotexture. Gallbladder: There are gallstone in the gallbladder neck. The gallbladder wall measures 3.1 mm in thickness. No pericholecystic fluid or sonographic Mccall's sign. Biliary ducts: Intrahepatic bile ducts are non-dilated. Extrahepatic bile duct caliber measures 6.6 mm. Normal is 6-7 mm or less in diameter, or 10 mm or less post-cholecystectomy. Pancreas: Visualized portions of the pancreas are sonographically normal. Spleen: Spleen is normal in size and homogeneous in echotexture. Kidneys: Kidneys are normal in size and echotexture. Right kidney measures 11.7 cm long; left kidney measures 13.2 cm long. No hydronephrosis or nephrolithiasis. No solid masses. Aorta: Visualized aorta is normal in caliber at less than 3 cm. Iliacs: Proximal common iliac arteries are normal in caliber at less than 2.5 cm. IVC: Intrahepatic inferior vena cava is patent. Miscellaneous: No free abdominal fluid. IMPRESSION: 1. Cholelithiasis with gallstones in the gallbladder neck. There is equivocal gallbladder wall thickening. No pericholecystic fluid collection or sonographic Mccall sign. Recommend clinical correlation for early acute cholecystitis. 2. Diffusely increased hepatic echotexture. This finding is most likely secondary to hepatic fatty infiltration although other hepatocellular disease may have a similar appearance. Recommend clinical correlation. Dictated by: Lois David M.D. on 05/09/2017 at 17:57 Approved by: Lois David M.D. on 05/09/2017 at 18:01 Assessment & Plan Patient is a 42 year old female w/ a hx of HTN and DM II who presented with constant, sharp, severe RUQ abdominal pain onset yesterday afternoon patient was admitted to the hospitalist service and Gen. surgery was consulted. Acute cholecystitis. - Pt presents with RUQ pain, abdominal ultrasound was performed revealing cholelithiasis with gallstones in the gallbladder neck, a gallbladder wall thickness of 3.1 m. - Dr. Olivas of Surgery was consulted, pt was taken for cholecystectomy patient is postop day #1. Patient tolerated the procedure well. Epigastric discomfort - I suspect this is secondary to insufflation used during surgery and suspect it will dissipate over time Type 2 diabetes, uncontrolled - Glucose 302 on admission. Pt reports compliance with home glipizide and metformin. Pt may require insulin on discharge depending on BG control and A1c. - Hemoglobin A1c ordered and was 10.6 - We will restart glipizide and metformin and patient begins eating. - Continue regular BG checks and sliding scale insulin coverage - We will continue Lantus 7 U qhs. - Humalog medium dose correctional scale. No nutritional insulin while pt is NPO. Mildly elevated LFTs - ALT 33. Likely secondary to cholecystitis. - Monitor CMP Hypertension - Well controlled on lisinopril - Continue home lisinopril. Hyperlipidemia - Continue home lovastatin Some evidence of early pulmonary edema on chest x-ray - Patient has no pulmonary symptoms and would recommend conservative management with follow-up chest x-ray as an outpatient plus or minus diuretic therapy - Bowel regimen as needed - Antiemetic as needed Disposition: Patient likely to be here another 24 hours to get her blood sugar under control prior to discharge. However, patient can find tuning of her diabetic management at her primary care physician's office. Patient obviously is not controlled or blood sugar well at home prior to this admission with a hemoglobin A1c of 10.6. We will try to educate her and give her a treatment plan that she could easily follow. Discussed with Dr. Olivas today. Dr. Kinza Fam will follow in a.m. Pain Evaluation: Adequate Pain Control VTE Prophylaxis: SCDs VTE Mechanical Devices: Intermittant Pneumatic CD Resuscitation Status: CPR: Attempt Resuscitation Tomás Miller MD May 12, 2017 00:43
--- NOTE | 2017-05-12 01:58 | NUR ---
Ambulate Patient denies N&V, Pain, and or discomfort. Ambulated halls with family without complaints. Sleeping throughout shift, family in room. Bed in low position, call light within reach, intentional rounding.
[2017-05-12 05:45] VITALS: BP 120/80; PULSE 79; RESP 16; O2SAT 95
[2017-05-12] MEDS: Piperacillin-Tazo 3.375 Gm Inj 3.375 GM in Dextrose 5% Minibag Plus 50 ML IV SCH (05:48)
[2017-05-12 06:48] LABS: BASOPHILS % (AUTO) 0.3 % (0-3); EOSINOPHILS % (AUTO) 1.6 % (0-5); Mean Corpuscular Hemoglobin 28.3 pg (27.0-35.0); NEUTROPHILS % (AUTO) 55.6 % (40-74); Platelet Count 262 bil/L (150-400)
[2017-05-12 07:00] LABS: Magnesium 1.7 mg/dL (1.6-2.6)
--- NOTE | 2017-05-12 07:29 | PCM.DIMED ---
Discharge Instructions Date of Service May 12, 2017 Dates of Hospitalization May 09, 2017 at 19:25 Diet Discharge Diet: Low fat, Low Sodium, Diabetic Activity Discharge Activity: No restrictions Patient Instructions Follow-up with PCP in: 1 week Kinza Fam MD May 12, 2017 07:29
[2017-05-12] MEDS ORDERED: OXYC5TAB72 PO (07:32)
--- NOTE | 2017-05-12 07:38 | PCM.PNSURG ---
Subjective Visit Information: Reason for Visit Acute Cholocystitis Surgery/Surgery Date LAP CHOLECYSTECTOMY 05/10/17 Post-Op Day # Date of Admission: May 09, 2017 at 19:25 Hospital Day # Subjective: Surgically stable. Leukocytosis resolved. CXR with Jg B lines. EKG NSR. BS still in 300s in last 24h. Zosyn was continued yesterday. Objective Vital Sign- Last 8 Hours Date Time Temp Pulse Resp B/P Pulse Ox O2 Delivery O2 Flow Rate FiO2 05/12/17 05:45 36.9 79 16 120/80 95 Room Air Intake and Output- Last 8 Hour 05/12/17 Cumulative From/Thru 07:00 05/09/17 16:09 - 05/12/17 06:48 Intake Total 1786 ml 7388 ml Output Total 909 ml Balance 1786 ml 6479 ml Intake Oral 850 ml 2350 ml IV Total 936 ml 5038 ml Output Urine Total 900 ml Estimated Blood Loss 9 ml # Voids 2 9 # Bowel Movements 0 0 General: Alert, Oriented X3, Cooperative, No Acute Distress Abdomen: Soft, Appropriately tender, Non-distended Result Diagram: 05/12/17 0603 05/12/17 0603 Assessment & Plan Impression 42yof POD 2 laparoscopic cholecystectomy. Problems: Plan OK to d/c Zosyn from surgical standpoint. Appreciate management of blood sugars by primary team. F/U in my clinic in 2-4 weeks after discharge. VTE Prophylaxis: SCDs Resuscitation Status: CPR: Attempt Resuscitation Juana Olivas MD May 12, 2017 07:38
--- NOTE | 2017-05-12 07:39 | PCM.DC.MED ---
Discharge Summary Date of Service May 12, 2017 Dates of Hospitalization Date of Hospital Admission May 09, 2017 at 19:25 Date of Discharge: May 12, 2017 Providers: Admitting Physician: Tomás Miller MD Primary Care Physician: [place] Attending Physician: Toáms Miller MD Diagnosis at Time of Discharge Diagnosis at Time of Discharge Acute Cholecystitis Diabetes Mellitus Hypertension Procedures XRay, CTs & MRIs PROCEDURE: US ABDOMEN ([id number]) INDICATIONS: Right upper quadrant abdominal pain. TECHNIQUE: Real-time scanning was performed of the abdominal and retroperitoneal organs, with image documentation. COMPARISON: None. FINDINGS: Liver: Liver is normal in size and diffusely increased hepatic echotexture. Gallbladder: There are gallstone in the gallbladder neck. The gallbladder wall measures 3.1 mm in thickness. No pericholecystic fluid or sonographic Mccall's sign. Biliary ducts: Intrahepatic bile ducts are non-dilated. Extrahepatic bile duct caliber measures 6.6 mm. Normal is 6-7 mm or less in diameter, or 10 mm or less post-cholecystectomy. Pancreas: Visualized portions of the pancreas are sonographically normal. Spleen: Spleen is normal in size and homogeneous in echotexture. Kidneys: Kidneys are normal in size and echotexture. Right kidney measures 11.7 cm long; left kidney measures 13.2 cm long. No hydronephrosis or nephrolithiasis. No solid masses. Aorta: Visualized aorta is normal in caliber at less than 3 cm. Iliacs: Proximal common iliac arteries are normal in caliber at less than 2.5 cm. IVC: Intrahepatic inferior vena cava is patent. Miscellaneous: No free abdominal fluid. IMPRESSION: 1. Cholelithiasis with gallstones in the gallbladder neck. There is equivocal gallbladder wall thickening. No pericholecystic fluid collection or sonographic Mccall sign. Recommend clinical correlation for early acute cholecystitis. 2. Diffusely increased hepatic echotexture. This finding is most likely secondary to hepatic fatty infiltration although other hepatocellular disease may have a similar appearance. Recommend clinical correlation. Dictated by: Lois David M.D. on 05/09/2017 at 17:57 Approved by: Lois David M.D. on 05/09/2017 at 18:01 Brief History Patient is a 42 year old female w/ a hx of HTN and DM II who presented with constant, sharp, severe RUQ abdominal pain onset yesterday afternoon and increased in severity to 10/10 since 1400 today. The pain is worse when breathing and walking. At 1400 today, she couldn't walk or bend over so she drove to the ED. She denies vomiting, nausea, diarrhea, dysuria, fevers, chills. She states she has been able to eat and drink normally, and she was able to eat a normal breakfast at 11:30 without increased pain. She has never had symptoms like this before. In the ED, HR was 116, improved to 96 with pain control. BP was 146/78, improved to 107/70. WBC was 12.2. CMP was normal, with the exception of glucose of 302 and ALT of 33. An abdominal ultrasound was performed revealing cholelithiasis with gallstones in the gallbladder neck, a gallbladder wall thickness of 3.1 mm, and no pericholecystic fluid or sonographic Mccall's sign. Intrahepatic bile ducts were nondilated. [facility]CP [facility] at [facility]. Hospital Course Acute cholecystitis. - Pt presented with RUQ pain, abdominal ultrasound was performed revealing cholelithiasis with gallstones in the gallbladder neck, a gallbladder wall thickness of 3.1 m. - Dr. Olivas of Surgery was consulted, pt was taken for laproscopic cholecystectomy May 10. Patient tolerated the procedure well. Epigastric discomfort - suspected secondary to insufflation used during surgery and should dissipate over time Type 2 diabetes, uncontrolled - Glucose 302 on admission. Pt reports compliance with home glipizide and metformin, will resume at discharge - Hemoglobin A1c ordered and was 10.6 - Received Lantus 7 U qhs. - Humalog medium dose correctional scale - Early follow up with PCP Mildly elevated LFTs - ALT 33-53. Likely secondary to cholecystitis. Hypertension - Well controlled on lisinopril - Continue home lisinopril. Hyperlipidemia - Continue home lovastatin Some evidence of early pulmonary edema on chest x-ray - Patient has no pulmonary symptoms and exam is normal, still on IVF which will be DC'd - recommend conservative management with follow-up chest x-ray as an outpatient plus or minus diuretic therapy - Bowel regimen as needed - Antiemetic as needed Exam Vital Signs (Last) Date Time Temp Pulse Resp B/P Pulse Ox O2 Delivery O2 Flow Rate FiO2 05/12/17 05:45 36.9 79 16 120/80 95 Room Air 05/10/17 17:07 3.00 Exam General: Alert and oriented, no acute distress, epigastric pain improving Heart: Regular Lungs: Clear Abdomen: Soft, mild epig tenderness, BT present Extremities: No pedal edema Test 05/09/17 16:15 05/09/17 16:40 05/12/17 06:03 Hold Purple Top Tube Received (Received) Hold Blue Top Tube Received (Received) Hemoglobin A1c 10.6% (4.8-5.6) Lipase 58U/L (13-60) Hold Pickering Top Tube Received (Received) Hold Gonzalez Top Tube Received (Received) Urine Color Yellow (YELLOW) Urine Appearance Clear (CLEAR,HAZY) Urine pH 7.0 (5.0-8.0) Urine Specific Lyle 1.010 (1.003-1.035) Urine Protein Negativemg/dL (NEG,TRACE) Urine Glucose (UA) >1000mg/dL (NEGATIVE) Urine Ketones Tracemg/dL (NEGATIVE) Urine Occult Blood Negative (NEGATIVE) Urine Nitrite Negative (NEGATIVE) Urine Bilirubin Negative (NEGATIVE) Urine Urobilinogen Normalmg/dL (NORMAL) Urine Leukocyte Esterase Negative (NEGATIVE) Urine RBC 0-2/hpf (0-2) Urine WBC 0-5/hpf (0-5) Urine Epithelial Cells Many/hpf (NONE-MOD) Urine Crystals None seen (NONE SEEN) Urine Bacteria Many/hpf (NONE-FEW) Urine Hyaline Casts None/lpf (NONE) Urine Granular Casts None seen (NONE SEEN) Urine Waxy Casts None seen (NONE SEEN) Urine Red Blood Cell Casts None seen (NONE SEEN) Urine White Blood Cell Casts None seen (NONE SEEN) Urine Mucus None seen (None Seen) Urine Trichomonas None seen (NONE SEEN) Urine Yeast None (NONE SEEN) Urinalysis Comment None Urine Culture Reflexed Indicated White Blood Count 7.0th/mm3 (3.8-10.1) Red Blood Count 3.74mil/mm3 (3.90-5.20) Hemoglobin 10.6g/dL (12.0-15.6) Hematocrit 33.3% (35.0-46.0) Mean Corpuscular Volume 89.0fL (81-100) Mean Corpuscular Hemoglobin 28.3pg (27.0-35.0) Mean Corpuscular Hemoglobin Concent 31.8% (32.0-37.0) Red Cell Distribution Width 13.7% (12.3-15.4) Platelet Count 262bil/L (150-400) Neutrophils (%) (Auto) 55.6% (40-74) Lymphocytes (%) (Auto) 32.2% (14-46) Monocytes (%) (Auto) 10.0% (4-12) Eosinophils (%) (Auto) 1.6% (0-5) Basophils (%) (Auto) 0.3% (0-3) Sodium Level 137mEq/L (134-144) Potassium Level 3.8mEq/L (3.5-5.2) Chloride Level 105mEq/L (97-108) Carbon Dioxide Level 22mmol/L (18-29) Blood Urea Nitrogen 6mg/dL (6-24) Creatinine < 0.30mg/dL (0.57-1.00) Estimat Glomerular Filtration Rate 351mL/min (>59) Glucose Level 162mg/dL (60-99) Calcium Level 8.1mg/dL (8.5-10.1) Magnesium Level 1.7mg/dL (1.6-2.6) Total Bilirubin 0.2mg/dL (0.0-1.2) Aspartate Amino Transf (AST/SGOT) 50U/L (0-50) Alanine Aminotransferase (ALT/SGPT) 54U/L (0-32) Alkaline Phosphatase 55U/L (25-150) Total Protein 6.0g/dL (6.4-8.4) Albumin 2.7g/dL (3.4-5.0) Microbiology Results Urine culture shows no growth. Discharge Medications Discharge Medications Aspirin (Aspirin) 81 Mg Tablet 81 MG PO DAILY (Reported) Glipizide (Glipizide) 10 Mg Tablet 10 MG PO DAILY (Reported) Lisinopril (Lisinopril) 5 Mg Tablet 5 MG PO DAILY (Reported) Lovastatin (Lovastatin) 10 Mg Tablet 10 MG PO HS (Reported) Metformin (Glucophage) 1,000 Mg Tablet 1,000 MG PO BID (Reported) As needed oxyCODONE (oxyCODONE) 5 Mg Tablet 5 MG PO Q4H PRN PRN For Moderate Pain Prescribed by: CELSO FAM MD Followup Plan Discharge Diet: Low fat, Low Sodium, Diabetic Discharge Activity: No restrictions Follow-up with PCP in: 1 week Celso Fam MD May 12, 2017 07:39
[2017-05-12] MEDS: Insulin LISPRO 300 Unit/3 mL Inj SUBQ SCH ×2 (08:04→12:00)
[2017-05-12] MEDS: Potassium Chloride 20 mEq SR Tablet PO SCH (09:39)
--- NOTE | 2017-05-12 11:43 | NUR ---
Social Work: Screening/Readiness for Discharge D: EMR reviewed. Pt is a 42 y/o female admitted for acute cholocystitis per H&P. Pt's insurance is [facility] and does not have a PCP. Pt's NOK is daughter, Maggy Pablo ([phone]). Per RN, pt has been up ambulating in room independently. Per MD, pt does not have any identifiable discharge needs at this time. Per MD in AM rounds, pt is medically stable and will be ready for discharge after receiving diabetic education from provider. Pt to discharge today via POV. SW does not anticipate any discharge needs at this time but will continue to follow if needs arise. A: Pt who is independent at baseline P: Pt to discharge today via POV. SW does not anticipate any discharge needs at this time but will continue to follow if needs arise. FAB Arreguin
--- NOTE | 2017-05-12 12:23 | NUR ---
Social Work: Discharge D: EMR reviewed. Pt is on day 3 of hospitalization. Per MD in AM multi-disciplinary rounds, pt is medically stable and will discharge today after receiving diabetic education from provider. Pt to discharge today via POV. SW does not anticipate any discharge needs at this time but will continue to follow if needs arise. A: Pt who is independent at baseline P: Pt to discharge today via POV. SW does not anticipate any discharge needs at this time but will continue to follow if needs arise. FAB Arreguin
--- NOTE | 2017-05-12 13:22 | NUR ---
DC Pain controlled with Ibuprofen and 5-10mg Oxycodone for breakthrough pain. Ambulating halls with steady gait. Denies CP, SOB or nausea at this time. Bloating pain has resolved after walking. All discharge instructions reviewed with pt and family in [place]. Per pt no questions, per family no questions. Prescription in hand and all belongings with family. Work release signed and in hand for pt. Care discontinues
--- NOTE | 2017-05-16 11:22 | PATH ---
SURGICAL PATHOLOGY Attending Physician:Juana Olivas MD CASE STATUS: Signed Out PATIENT NAME: ERIC WINTERS PID: [id number] : 1975 DATE COLLECTED:05/10/2017 00:00 SPECIMEN: Gallbladder CLINICAL HISTORY: CHOLECYSTITIS 1). GALLBLADDER FINAL DIAGNOSIS: Gallbladder: Cholelithiasis with associated chronic cholecystitis. ICD10: K80.66 GROSS DESCRIPTION: The specimen is received in one formalin filled container labeled with the patient's name, sublabeled "gallbladder" and consists of an opened 6.0 x 3.0 x 1.5 CM gallbladder. The serosa is smooth. The cystic duct is possibly identified. The wall is 0.2-0.3 CM in thickness. The mucosa is a light to dark green in color. The lumen contains one dark green calculus which measures 1.5 x 1.3 x 1.3 CM. 5 inside sales account representative sections are submitted in one cassette. 05/11/2017 [facility] ICD-9 CODES: CPT CODES: 1: 61786 Electronically Signed Out Huseyin Vidales MD [facility] [address], [place] [address] Technical component performed at [facility], [address] [place] [address] Ave[address], [place], [address]
== END 2017-05-12 13:18 | disposition home or self-care (01) | DRG 419 ==
LOC: SED 16:00 → OSC 19:25 → OBSVTOIN 19:25
PROVIDERS: ADMIT Internal Medicine Infectious Disease; ATTEND Internal Medicine Infectious Disease
PROC: 0FT44ZZ Resection of Gallbladder, Percutaneous Endoscopic Approach (ICD-10-PCS; principal; 2017-05-10 08:45)
DX: K81.0 Acute cholecystitis (principal); I10 Essential (primary) hypertension; E78.5 Hyperlipidemia, unspecified; E11.65 Type 2 diabetes mellitus with hyperglycemia; Z79.82 Long term (current) use of aspirin